=== PATIENT | male | born 1960 | race African-American/Black ===

== ENCOUNTER 2016-06-05 15:56 | Emergency (ER) | payer OTHER ==
[~2016-06-05] VITALS: Ht 172.7 cm; Wt 64.0 kg
[2016-06-05 16:10] VITALS: TEMP 36.9; Ht 172.7 cm; Wt 64.0 kg
--- NOTE | 2016-06-05 17:02 | EMERGENCY ROOM VISIT NOTE ---
History Report prepared by Mustapha: Piter Valdovinos Under the Supervision of: Dr. Victor Manuel Gross M.D. First contact with patient: 16:50 Chief Complaint: ABDOMINAL PAIN Stated Complaint: PAIN IN STOMACH, ANUS Nursing Triage Summary: pt is eating kit nemo at triage pt reports being constipated and taking laxatives with results pt presents with abd pain and pressure pt has odd affect History of Present Illness The patient is a 56 year old male who presents to the Emergency Room with complaints of persistent constipation for the past few days. The patient took 2 ex-lax yesterday.He complains of abdominal pain, pressure, and gas after taking the laxative. He also complains of a worsening rectal pressure with standing up. Source of History: patient Onset: past few days Position: other (GI) Timing: other (persistent) Associated Symptoms: + abdominal pain (pressure and gas) Note: Other associated symptoms: rectal pressure with standing up Review of Systems See HPI for pertinent positives & negatives. A total of 10 systems reviewed and were otherwise negative. Past Medical & Surgical Medical Problems: (1) Diabetes (2) Hypertension (3) Pneumonia Family History FH: diabetes mellitus FH: hypertension Social History Smoking Status: Current Every Day Smoker Alcohol Use: occasionally Occupation Status: unemployed Allergies Coded Allergies: No Known Allergies (Unverified , 06/05/16) Physical Exam Vital Signs Date Time Temp Pulse Resp B/P Pulse Ox O2 Delivery O2 Flow Rate FiO2 06/05/16 16:10 36.9 79 20 153/99 98 Room Air Physical Exam GENERAL: Patient is a healthy-appearing well-nourished HEAD: Normocephalic atraumatic EYES: Ocular movements intact pupils equal and react to light OROPHARYNX mucous membranes are moist no exudates present no erythema or edema present NECK: Supple no nuchal rigidity CHEST: Good equal expansion LUNGS: Clear and equal to auscultation CARDIAC: Normal S1 and S2 ABDOMEN: Soft nontender no guarding BACK: No CVA tenderness EXTREMITIES: No pain upon palpation normal muscle strength in all groups no clubbing cyanosis or edema NEURO: Patient is following commands is answering questions appropriately. Alert and oriented x3 Cranial Nerves 2-12 grossly intact Medical Decision & Procedures ER Provider Diagnostic Interpretation: X-ray results as stated below per interpretation by me and the radiologist: PA CHEST RADIOGRAPH AND UPRIGHT AND SUPINE AP RADIOGRAPHS OF THE ABDOMEN CLINICAL HISTORY: Abdominal pain and diarrhea. COMPARISON STUDY: No previous studies for comparison. FINDINGS: Lung volumes are normal. There is no pneumothorax or pleural effusion. There is slight asymmetric prominence of the right hilum. Cardiac size is normal. Mediastinal contours are normal. There is no evidence of pulmonary edema. No free air is present. The bowel gas pattern is normal. Pelvic calcifications likely reflect vascular calcifications and phleboliths. IMPRESSION: 1. No free air or evidence of bowel obstruction. 2. No acute cardiopulmonary findings. 3. Mild right hilar prominence. This is likely due to normal structures. However, short-term follow-up PA, shallow oblique and lateral chest radiographs are recommended in 2-4 weeks. Electronically signed by: Frank Donis M.D. 06/05/2016 5:28 PM Dictated Date/Time: 06/05/2016 5:24 PM Medications Administered Medications (Trade) Dose Ordered Sig/Emery Route Start Time Stop Time Status Last Admin Dose Admin Hard Fat/ Phenylephrine (Anusol Supp) 1 ea NOW STAT TX 06/05/16 17:03 06/05/16 17:04 DC 06/05/16 17:39 1 ED Course 1651: Past medical records reviewed. The patient was evaluated in room C8. A complete history and physical examination was performed. 1703: Ordered Anusol Supp 1 ea TX. 1743: Ordered Magnesium Citrate 296 ml PO. 1800: Upon reexamination the patient is resting. I discussed results and treatment plan with the patient. He verbalizes agreement and understanding. The patient is ready for discharge. Medical Decision Differential diagnosis: Etiologies such as functional constipation, impaction, obstruction, volvulus, metabolic abnormality, infection, neurologic, as well as others were entertained. This is a 56-year-old male who presents emergency department complaining of constipation. The patient was eating upon arrival to emergency department. Serial abdominal examinations were performed on the patient in the emergency department and at no time did the patient exhibit abdominal tenderness. Based on these findings and per patient request I felt he could be conservatively treated. He has no evidence of hemorrhoids or pilonidal cyst or rectal tenderness on examination. For this reason he was given an Anusol suppository. X-rays do not show any evidence of bowel obstruction. I encouraged patient to take by me since citrate and to repeat this in 6 hours. I also encouraged clear liquid diet for the next 48 hours. Patient is in agreement with the treatment plan. Impression Primary Impression: Constipation Additional Impression: Abdominal pain Scribe Attestation The scribe's documentation has been prepared under my direction and personally reviewed by me in its entirety. I confirm that the note above accurately reflects all work, treatment, procedures, and medical decision making performed by me. Departure Information Dispostion Home / Self-Care Referrals Gurinder Ramirez M.D. (PCP) Forms Call Back Authorization, HOME CARE DOCUMENTATION FORM, IMPORTANT VISIT INFORMATION, My [facility] Patient Instructions A Signature Page Additional Instructions Take 1/2 bottle of Mag citrate, Repeat second half in six hours Advance diet slowly with Clear liquids for 48 hours You have been examined and treated today on an emergency basis only. This is not a substitute for, or an effort to provide, complete comprehensive medical care. It is impossible to recognize and treat all injuries or illnesses in a single emergency department visit. It is therefore important that you follow up closely with Dr Ramirez. Call as soon as possible for an appointment. Thank you for your time and consideration. I look forward to speaking with you again soon. Please don't hesitate to call us if you have any questions.
[2016-06-05] MEDS ORDERED: ANUSOL SUPP 1 EA PR STA (17:03)
--- NOTE | 2016-06-05 17:30 | DIAGNOSTIC IMAGING REPORT ---
PA CHEST RADIOGRAPH AND UPRIGHT AND SUPINE AP RADIOGRAPHS OF THE ABDOMEN CLINICAL HISTORY: Abdominal pain and diarrhea. COMPARISON STUDY: No previous studies for comparison. FINDINGS: Lung volumes are normal. There is no pneumothorax or pleural effusion. There is slight asymmetric prominence of the right hilum. Cardiac size is normal. Mediastinal contours are normal. There is no evidence of pulmonary edema. No free air is present. The bowel gas pattern is normal. Pelvic calcifications likely reflect vascular calcifications and phleboliths. IMPRESSION: 1. No free air or evidence of bowel obstruction. 2. No acute cardiopulmonary findings. 3. Mild right hilar prominence. This is likely due to normal structures. However, short-term follow-up PA, shallow oblique and lateral chest radiographs are recommended in 2-4 weeks. Electronically signed by: Frank Donis M.D. 06/05/2016 5:28 PM Dictated Date/Time: 06/05/2016 5:24 PM
[2016-06-05] MEDS ORDERED: MAGNESIUM CITRATE 296 ML/BTL PO STA (17:43)
[2016-06-05 18:25] VITALS: BP 171/89; PULSE 63; O2SAT 97
== END 2016-06-05 18:36 | disposition home or self-care (01) ==
LOC: C.EDB 15:59 → C.EDC 18:36
DX: K59.00 Constipation, unspecified (principal); R10.9 Unspecified abdominal pain; I10 Essential (primary) hypertension; E11.9 Type 2 diabetes mellitus without complications; Z83.3 Family history of diabetes mellitus; Z82.49 Family history of ischemic heart disease and other diseases of the circulatory system; F17.210 Nicotine dependence, cigarettes, uncomplicated

== ENCOUNTER 2016-06-25 14:55 | Emergency (ER) | payer OTHER ==
[~2016-06-25] VITALS: Ht 172.7 cm; Wt 66.6 kg
[2016-06-25 14:57] VITALS: TEMP 37.3; Ht 172.7 cm; Wt 66.6 kg
[2016-06-25] MEDS ORDERED: SODIUM CHLORIDE 0.9% 1000ML 1,000 ML IV STA ×2 (15:06)
[2016-06-25] MEDS ORDERED: KETOROLAC TROMETHAMINE 30 MG/ML VIAL IV STA (15:06)
[2016-06-25] MEDS ORDERED: PROMETHAZINE HCL INJ 12.5 MG in SODIUM CHLORIDE 0.9% 50ML 50 ML IV SCH (15:06)
[2016-06-25] MEDS ORDERED: PROMETHAZINE HCL INJ 25 MG/ML 1 ML VIAL IV STA (15:06)
[2016-06-25] MEDS ORDERED: MoRPHine SULFATE 4 MG/ML 1 ML CARP\\VIAL IV PRN (15:15)
[2016-06-25] MEDS ORDERED: OPTIRAY 320 IV PRN (15:30)
--- NOTE | 2016-06-25 15:33 | EMERGENCY ROOM VISIT NOTE ---
History Report prepared by Mustapha: Fabiola Portillo Under the Supervision of: Dr. Bridger Green M.D. First contact with patient: 15:02 Chief Complaint: GI ASSESSMENT Stated Complaint: STOMACH PAIN, BLACK STOOL, VOMITING Nursing Triage Summary: pt reports was seen here 2 weeks ago for constipation reports unable to hold anything down. pt was in [facility] in april reports he had pneumonia. pt c/o bilat abd History of Present Illness The patient is a 56 year old male who presents to the Emergency Room with complaints of persistent bilateral lower abdominal pain starting a few weeks ago. On Jun 05, the patient was evaluated in the Emergency Room for constipation. He used MiraLAX one time with relief. The patient is no longer on any medication to help with his bowel movements. A few weeks ago, the patient started having diarrhea. He describes his stools to be loose and watery with a yellowish-green color. He denies any blood in stool. A few weeks ago, the patient also started having bilateral lower abdominal pain. He denies having a bloated abdomen. He has worsening pain with eating, walking, and having bowel movements. He has lost some weight in the past few weeks but is unsure of how much. The patient denies any recent fevers, chest pain, burning with urination, or any other complaints. He does not have any history of abdominal surgeries. Source of History: patient Onset: a few weeks ago Position: abdomen (bilateral) Timing: other (persistent) Modifying Factors (Worsening): eating, other (walking and having bowel movements) Associated Symptoms: No chest pain, No fevers Review of Systems See HPI for pertinent positives & negatives. A total of 10 systems reviewed and were otherwise negative. Past Medical & Surgical Medical Problems: (1) Diabetes (2) Hypertension (3) Pneumonia Family History FH: diabetes mellitus FH: hypertension Social History Smoking Status: Never Smoker Alcohol Use: occasionally Occupation Status: unemployed Current/Historical Medications Scheduled Dicyclomine Hcl (Bentyl), 1 TAB PO TID Insulin Isophan/Regular (Novolin 70/30), 10 UNIT SC BID Lisinopril (Prinivil), 5 MG PO DAILY Potassium Chloride (Potassium Chloride Er), 1 CAP PO DAILY Allergies Coded Allergies: No Known Allergies (Unverified , 06/05/16) Physical Exam Vital Signs Date Time Temp Pulse Resp B/P Pulse Ox O2 Delivery O2 Flow Rate FiO2 06/25/16 19:04 67 16 163/84 96 06/25/16 16:55 73 18 179/92 97 Room Air 06/25/16 14:57 37.3 87 18 167/102 98 Room Air Physical Exam GENERAL: Patient is in no acute distress. HEENT: No acute trauma, normocephalic atraumatic, mucous membranes moist, no nasal congestion, no scleral icterus. NECK: No stridor, no adenopathy, no meningismus, trachea is midline. LUNGS: Clear to auscultation bilaterally, no wheeze, no rhonchi, breath sounds equal. HEART: Subtle systolic murmur, regular rhythm and normal rate. ABDOMEN: Soft, bilateral lower quadrant discomfort with palpation, bowel sounds positive, no hernias, no peritonitis. EXTREMITIES: No cyanosis or edema, full range of motion of all the joints without pain or difficulty, no signs for acute trauma. NEUROLOGIC: Oriented x 3, no acute motor or sensory deficits, no focal weakness. SKIN: No rash, no jaundice, no diaphoresis. Medical Decision & Procedures ER Provider Diagnostic Interpretation: CT results as stated below per my review and radiologist interpretation: CT ABD/PELVIS IV AND ORAL CONT CLINICAL HISTORY: Generalized abdominal pain COMPARISON STUDY: Conventional radiographic study dated 06/05/2016 TECHNIQUE: Following the IV administration of 110 mL of Optiray-320, CT scan of the abdomen and pelvis was performed from the lung bases to the proximal femurs. Images are reviewed in the axial, sagittal, and coronal planes. IV contrast was administered without complication. CT DOSE: 273.81 mGy.cm FINDINGS: Lower chest: There are right basilar atelectatic changes. There is elevation right hemidiaphragm. Liver: The contrast-enhanced liver is normal in size, contour, and attenuation. There is no intrahepatic biliary ductal dilatation. The hepatic veins and portal veins are patent. Gallbladder: Unremarkable. Spleen: Normal in size and attenuation. Pancreas: Unremarkable. Adrenal glands: Unremarkable. Kidneys: There is symmetric renal cortical enhancement. The kidneys are normal in size without hydronephrosis. Bowel: There are no transition zones indicate bowel obstruction. There is long segment colonic wall thickening most pronounced involving the ascending and transverse colon. The findings are consistent with a colitis. There is no evidence of acute appendicitis. There are no findings to indicate acute diverticulitis. Peritoneum: There is no intraperitoneal free air or abdominal ascites. The tiny fat-containing umbilical hernia. Vasculature: The abdominal aorta is normal in course and caliber. Adenopathy: None. Pelvic viscera: The prostate is enlarged. Skeletal structures: No destructive osseous lesions are seen. IMPRESSION: 1. Long segment colonic wall thickening most pronounced involving the ascending and transverse colon. The findings are consistent with a colitis 2. No evidence of bowel obstruction. No evidence of free air 3. No evidence of acute appendicitis 4. Prostamegaly Electronically signed by: Tom Copeland M.D. 06/25/2016 6:06 PM Dictated Date/Time: 06/25/2016 6:02 PM Laboratory Results 06/25/16 15:20 Red Blood Count 4.51, Mean Corpuscular Volume 82.9, Mean Corpuscular Hemoglobin 28.4, Mean Corpuscular Hemoglobin Concent 34.2, Mean Platelet Volume 9.0, Neutrophils (%) (Auto) 68.9, Lymphocytes (%) (Auto) 22.8, Monocytes (%) (Auto) 6.8, Eosinophils (%) (Auto) 1.1, Basophils (%) (Auto) 0.3, Neutrophils # (Auto) 8.15, Lymphocytes # (Auto) 2.70, Monocytes # (Auto) 0.80, Eosinophils # (Auto) 0.13, Basophils # (Auto) 0.03 06/25/16 15:20 Test 06/25/16 15:20 06/25/16 15:24 White Blood Count 11.82 K/uL (4.8-10.8) Red Blood Count 4.51 M/uL (4.7-6.1) Hemoglobin 12.8 g/dL (14.0-18.0) Hematocrit 37.4 % (42-52) Mean Corpuscular Volume 82.9 fL (80-100) Mean Corpuscular Hemoglobin 28.4 pg (25-34) Mean Corpuscular Hemoglobin Concent 34.2 g/dl (32-36) Platelet Count 463 K/uL (130-400) Mean Platelet Volume 9.0 fL (7.4-10.4) Neutrophils (%) (Auto) 68.9 % Lymphocytes (%) (Auto) 22.8 % Monocytes (%) (Auto) 6.8 % Eosinophils (%) (Auto) 1.1 % Basophils (%) (Auto) 0.3 % Neutrophils # (Auto) 8.15 K/uL (1.4-6.5) Lymphocytes # (Auto) 2.70 K/uL (1.2-3.4) Monocytes # (Auto) 0.80 K/uL (0.11-0.59) Eosinophils # (Auto) 0.13 K/uL (0-0.5) Basophils # (Auto) 0.03 K/uL (0-0.2) RDW Standard Deviation 41.1 fL (36.4-46.3) RDW Coefficient of Variation 13.8 % (11.5-14.5) Immature Granulocyte % (Auto) 0.1 % Immature Granulocyte # (Auto) 0.01 K/uL (0.00-0.02) Urine Color DK YELLOW Urine Appearance CLEAR (CLEAR) Urine pH 5.5 (4.5-7.5) Urine Specific [place] 1.016 (1.000-1.030) Urine Protein 2+ (NEG) Urine Glucose (UA) NEG (NEG) Urine Ketones NEG (NEG) Urine Occult Blood NEG (NEG) Urine Nitrite NEG (NEG) Urine Bilirubin NEG (NEG) Urine Urobilinogen NEG (NEG) Urine Leukocyte Esterase NEG (NEG) Urine WBC (Auto) 1-5 /hpf (0-5) Urine RBC (Auto) 0-4 /hpf (0-4) Urine Hyaline Casts (Auto) 5-10 /lpf (0-5) Urine Epithelial Cells (Auto) 20-30 /lpf (0-5) Urine Bacteria (Auto) NEG (NEG) Urine Mucus PRESENT (NONE PRSENT) Anion Gap 8.0 mmol/L (3-11) Est Creatinine Clear Calc Drug Dose 64.7 ml/min Estimated GFR () 77.9 Estimated GFR (Non- 67.2 BUN/Creatinine Ratio 4.9 (10-20) Calcium Level 9.4 mg/dl (8.5-10.1) Total Bilirubin 0.4 mg/dl (0.2-1) Aspartate Amino Transf (AST/SGOT) 9 U/L (15-37) Alanine Aminotransferase (ALT/SGPT) 15 U/L (12-78) Alkaline Phosphatase 95 U/L (45-117) Total Protein 8.4 gm/dl (6.4-8.2) Albumin 3.5 gm/dl (3.4-5.0) Globulin 4.9 gm/dl (2.5-4.0) Albumin/Globulin Ratio 0.7 (0.9-2) Lipase 101 U/L (73-393) Bedside Lactic Acid Venous 1.41 mmol/L (0.90-1.70) Laboratory results reviewed by me. Medications Administered Medications (Trade) Dose Ordered Sig/Emery Route Start Time Stop Time Status Last Admin Dose Admin Sodium Chloride 1,000 ml @ 200 mls/hr Q5H STAT IV 06/25/16 15:06 06/25/16 19:29 DC 06/25/16 16:48 200 MLS/HR Sodium Chloride (Nss 1000ml) 1,000 ml @ 999 mls/hr Q1H1M STAT IV 06/25/16 15:06 06/25/16 16:06 DC 06/25/16 15:42 999 MLS/HR Morphine Sulfate (MoRPHine SULFATE INJ) 4 mg Q30M PRN IV 06/25/16 15:15 06/25/16 19:29 DC 06/25/16 15:41 4 MG Ketorolac Tromethamine 30 mg 30 mg NOW STAT IV 06/25/16 15:06 06/25/16 15:13 DC 06/25/16 15:42 30 MG Promethazine HCl/ Sodium Chloride (Phenergan Inj/ Nss 50ml) 50.5 ml @ 202 mls/hr 1506 IV 06/25/16 15:06 06/25/16 18:00 DC 06/25/16 15:46 202 MLS/HR Potassium Chloride (Klor-Con M10) 40 meq NOW STAT PO 06/25/16 16:04 06/25/16 16:05 DC 06/25/16 16:53 40 MEQ Procedure Nurse reports trace heme positive, mucousy/yellow stool. ED Course 1502: The patient was evaluated in room A02. A complete history and physical exam was performed. 1506: Toradol Inj 30 mg IV, Sodium Chloride 1000 ml @ 999 mls/hr IV, Sodium Chloride 1000 ml @ 200 mls/hr IV, Phenergan Inj 12.5 mg IV 1515: Morphine Sulfate 4 mg IV 1604: Potassium Chloride 40 meq PO 1605: I reevaluated the patient who is resting comfortably. 1823: I discussed the patient's case with Dr. Turner, automotive parts salesperson with [facility]. He recommended discharging the patient and follow up in his office. 1829: Reevaluated the patient. Discussed results and discharge instructions: He verbalized understanding and agreement. The patient is ready for discharge. Medical Decision Differential diagnosis includes but is not limited to diverticulitis, colitis, C Diff infection, GI bleed, electrolyte imbalance, pancreatitis, anemia, malignancy, bacterial intestinal infection, food allergy. There is a very mild leukocytosis, this could be consistent with infection. No worrisome anemia. Renal panel testing shows a mildly low potassium, no kidney failure. There was no hepatitis or pancreatitis. Urinalysis shows no infection. Abdominal and pelvis CT shows colitis, no diverticulitis, no acute surgical process. On exam, the patient did not have a fever, he was not toxic. The patient did not have peritonitis. Stool heme testing by the nursing staff showed a trace amount of blood, nothing significant. Stool C. difficile test was negative, stool cultures are pending. The patient received IV saline, IV Toradol, IV morphine and IV Phenergan. He was given some oral potassium. I discussed the case with the on-call GI physician. The patient will be followed up in the office, he will likely undergo a colonoscopy. No antibiotics are indicated. A bland diet was suggested. He is being prescribed Bentyl. He will have a few days of potassium supplementation. The patient was encouraged to use Tylenol for pain. If things are worsening, he will return. He will call to set up his GI appointment. Certainly, the colitis finding explains his diarrhea and crampy pain. [place] Drug Monitoring Program Search Results: patient reviewed within database, no issues identified Consults Time Called: 1815 Consulting Physician: Dr. Turner, automotive parts salesperson with [facility] Returned Call: 1822 I discussed the patient's case with Dr. Turner, automotive parts salesperson with [facility]. He recommended discharging the patient and follow up in his office. Impression Primary Impression: Diffuse abdominal pain Additional Impressions: Colitis Diarrhea Scribe Attestation The scribe's documentation has been prepared under my direction and personally reviewed by me in its entirety. I confirm that the note above accurately reflects all work, treatment, procedures, and medical decision making performed by me. Departure Information Dispostion Home / Self-Care Prescriptions Potassium Chloride (POTASSIUM CHLORIDE ER) 10 Meq Cap 1 CAP PO DAILY for 5 Days, #5 CAP 1 Refill Prov: Bridger Green M.D. 06/25/16 Dicyclomine Hcl (BENTYL) 20 Mg Tab 1 TAB PO TID for 30 Days, #90 TAB Prov: Bridger Green M.D. 06/25/16 Referrals Gurinder Ramirez M.D. (PCP) Margoth Turner M.D. Forms HOME CARE DOCUMENTATION FORM, IMPORTANT VISIT INFORMATION Patient Instructions My [facility] Additional Instructions use potassium tab daily for next 5 days bentyl as directed for abdominal spasms and pain tylenol for pain bland diet---crackers, soup, toast, water or sugar free sports drink return for fever or worsening symptoms call and set up GI appt--call tomorrow am Problem Qualifiers
[2016-06-25 15:48] LABS: URINE APPEARANCE CLEAR (CLEAR); URINE BILIRUBIN NEG (NEG); URINE COLOR DK YELLOW; URINE EPITHELIAL CELL AUTO 20-30 /lpf (0-5); URINE NITRITE NEG (NEG); URINE PH 5.5 (4.5-7.5); URINE SPECIFIC GRAVITY 1.016 (1.000-1.030); UROBILINOGEN NEG (NEG); ZZUR CULT IF INDIC CLEAN CATCH NO
[2016-06-25 15:51] LABS: MANUAL MICROSCOPIC REQUIRED? NO; REVIEW REQ? YES
[2016-06-25 15:52] LABS: BASO % 0.3 %; BASO ABS # 0.03 K/uL (0-0.2); COMPLETE YES; EOS % 1.1 %; HEMATOCRIT 37.4 % (42-52); IG% 0.1 %; LYMPH % 22.8 %; MEAN CELL VOLUME 82.9 fL (80-100); MEAN CORPUSCULAR HEMOGLOBIN 28.4 pg (25-34); MEAN CORPUSCULAR HGB CONC 34.2 g/dl (32-36); MONO % 6.8 %; NEUT % 68.9 %; PLATELET COUNT 463 K/uL (130-400); RED BLOOD COUNT 4.51 M/uL (4.7-6.1); WHITE BLOOD COUNT 11.82 K/uL (4.8-10.8)
[2016-06-25 15:59] LABS: BUN/CREATININE RATIO 4.9 (10-20); CALCIUM 9.4 mg/dl (8.5-10.1); CREATININE 1.2 mg/dl (0.60-1.40); POTASSIUM 2.9 mmol/L (3.5-5.1); URINE MUCUS PRESENT (NONE PRSENT)
[2016-06-25 16:02] LABS: ALB/GLOB RATIO 0.7 (0.9-2)
[2016-06-25] MEDS ORDERED: POTASSIUM CHLORIDE 10 MEQ TABCR PO STA (16:04)
--- NOTE | 2016-06-25 18:07 | DIAGNOSTIC IMAGING REPORT ---
CT ABD/PELVIS IV AND ORAL CONT CLINICAL HISTORY: Generalized abdominal pain COMPARISON STUDY: Conventional radiographic study dated 06/05/2016 TECHNIQUE: Following the IV administration of 110 mL of Optiray-320, CT scan of the abdomen and pelvis was performed from the lung bases to the proximal femurs. Images are reviewed in the axial, sagittal, and coronal planes. IV contrast was administered without complication. CT DOSE: 273.81 mGy.cm FINDINGS: Lower chest: There are right basilar atelectatic changes. There is elevation right hemidiaphragm. Liver: The contrast-enhanced liver is normal in size, contour, and attenuation. There is no intrahepatic biliary ductal dilatation. The hepatic veins and portal veins are patent. Gallbladder: Unremarkable. Spleen: Normal in size and attenuation. Pancreas: Unremarkable. Adrenal glands: Unremarkable. Kidneys: There is symmetric renal cortical enhancement. The kidneys are normal in size without hydronephrosis. Bowel: There are no transition zones indicate bowel obstruction. There is long segment colonic wall thickening most pronounced involving the ascending and transverse colon. The findings are consistent with a colitis. There is no evidence of acute appendicitis. There are no findings to indicate acute diverticulitis. Peritoneum: There is no intraperitoneal free air or abdominal ascites. The tiny fat-containing umbilical hernia. Vasculature: The abdominal aorta is normal in course and caliber. Adenopathy: None. Pelvic viscera: The prostate is enlarged. Skeletal structures: No destructive osseous lesions are seen. IMPRESSION: 1. Long segment colonic wall thickening most pronounced involving the ascending and transverse colon. The findings are consistent with a colitis 2. No evidence of bowel obstruction. No evidence of free air 3. No evidence of acute appendicitis 4. Prostamegaly Electronically signed by: Tom Copeland M.D. 06/25/2016 6:06 PM Dictated Date/Time: 06/25/2016 6:02 PM
[2016-06-25] MEDS ORDERED: LISI-729 PO (18:17)
[2016-06-25] MEDS ORDERED: INSU70IN2 SC (18:17)
[2016-06-25] MEDS ORDERED: DICY20TA35 PO (18:42)
[2016-06-25] MEDS ORDERED: POTA1CAP2 PO (18:42)
[2016-06-25 19:04] VITALS: BP 163/84; PULSE 67; O2SAT 96
== END 2016-06-25 19:06 | disposition home or self-care (01) ==
LOC: C.EDB 14:56 → C.EDA 19:06
DX: K52.9 Noninfective gastroenteritis and colitis, unspecified (principal); E11.9 Type 2 diabetes mellitus without complications; I10 Essential (primary) hypertension; Z87.01 Personal history of pneumonia (recurrent); Z83.3 Family history of diabetes mellitus; Z82.49 Family history of ischemic heart disease and other diseases of the circulatory system; Z79.4 Long term (current) use of insulin; Z79.899 Other long term (current) drug therapy